=== PATIENT | male | born 2000 | race Caucasian/White ===

== ENCOUNTER 2024-10-28 14:39 | Inpatient (IN) | payer OTHER, MEDICAID ==
[~2024-10-28] VITALS: Ht 188 cm; Wt 86.2 kg
[2024-10-28] MEDS ORDERED: LORAZEPAM INJ 2 MG/ML VIAL IV ONE (15:30)
[2024-10-28] MEDS ORDERED: LORAZEPAM INJ 2 MG/ML VIAL ONE ×4 (15:36→18:00)
[2024-10-28] MEDS: LORAZEPAM INJ 2 MG/ML VIAL IM ONE (16:07)
[2024-10-28] MEDS: LORAZEPAM 4 MG/ML VIAL IM ONE (16:15)
[2024-10-28] MEDS ORDERED: diphenhydrAMINE HCL 50 MG/ML VIAL ONE (16:16)
[2024-10-28] MEDS ORDERED: HALOPERIDOL LACTATE INJ 5 MG/ML VIAL ONE (16:16)
[2024-10-28] MEDS: diphenhydrAMINE HCL 50 MG/ML VIAL IM ONE (16:20)
[2024-10-28] MEDS: HALOPERIDOL LACTATE INJ 5 MG/ML VIAL IM ONE (16:22)
[2024-10-28] MEDS: LORAZEPAM INJ 2 MG/ML VIAL IM/IV ONE (16:24)
[2024-10-28] MEDS: IV LR 1000 ML 1,000 ML BAG IV ONE ×2 (16:30→18:46)
[2024-10-28 16:39] LABS: BASOPHILS % (AUTO) 0.3 % (0.0-2.0); EOSINOPHILS % (AUTO) 0.1 % (0.0-6.0); HEMATOCRIT 45 % (39-51); HEMOGLOBIN 14.6 g/dL (13.5-17.5); LYMPHOCYTES # (AUTO) 2.5 K/uL (0.8-4.8); LYMPHOCYTES % (AUTO) 22.4 % (20.0-44.0); MEAN CORPUSCULAR HEMOGLOBIN 29 PG (26.0-33.0); MEAN CORPUSCULAR HGB CONC 32 g/dl (31.0-36.0); MEAN CORPUSCULAR VOLUME 90 fL (80-96); MONOCYTES # (AUTO) 0.8 K/uL (0.1-1.30); MONOCYTES % (AUTO) 7.4 % (2.0-12.0); NEUTROPHILS # (AUTO) 7.9 K/uL (1.8-8.9); NEUTROPHILS % (AUTO) 69.8 % (43.0-81.0); PLATELET COUNT (AUTO) 529 K/uL (150-450); RED BLOOD CELL COUNT(AUTO) 5.02 MIL/uL (4.5-6.0); RED CELL DISTRIBUTION WIDTH 14.5 % (11.5-15.0); WHITE BLOOD COUNT (AUTO) 11.3 K/uL (4.3-11.0)
[2024-10-28 17:01] LABS: CALCIUM, SERUM 10.1 mg/dL (8.5-10.1); CARBON DIOXIDE 17 mmol/L (21-32); CHLORIDE 103 mmol/L (98-107); CREATININE 1.7 mg/dL (0.6-1.3); GLUCOSE 81 mg/dL (74-106); POTASSIUM 4.5 mmol/L (3.5-5.1); SODIUM SERUM 146 mmol/L (136-145); UREA NITROGEN, BLOOD 13 mg/dL (7-18)
[2024-10-28 17:09] LABS: ALANINE AMINOTRANSFERASE 40 U/L (12-78); ALBUMIN 4.3 g/dL (3.4-5.0); ALCOHOL, BLOOD < 3 mg/dL (0-10); ALKALINE PHOSPHATASE 88 U/L (46-116); ASPARTATE AMINOTRANSFERASE 30 U/L (15-37); BILIRUBIN,DIRECT 0.2 mg/dL (0.0-0.2); BILIRUBIN,TOTAL 0.6 mg/dL (0.2-1.0); TOTAL PROTEIN, SERUM 8.4 g/dL (6.4-8.2)
[2024-10-28 17:10] LABS: ACETAMINOPHEN 0 ug/ml (10-30); SALICYLATE 1.3 mg/dL (2.8-20.0)
[2024-10-28] MEDS: LORAZEPAM INJ 2 MG/ML VIAL IV ONE (18:05)
[2024-10-28 19:03] LABS: AMPHETAMINE, URINE NEGATIVE (NEGATIVE); BARBITURATE, URINE NEGATIVE (NEGATIVE); BENZODIAZEPINE, URINE NEGATIVE (NEGATIVE); CANNABINOID, URINE NEGATIVE (NEGATIVE); COCCAINE, URINE NEGATIVE (NEGATIVE); OPIATE, URINE NEGATIVE (NEGATIVE); PHENCYCLIDINE SCREEN,URINE NEGATIVE (NEGATIVE)
[2024-10-28 19:19] LABS: APPEARANCE,URINE CLEAR (CLEAR); BILIRUBIN,URINE 1+ (NEGATIVE); BLOOD, URINE NEGATIVE Ery/uL (NEGATIVE); COLOR,URINE YELLOW (YELLOW); KETONES,URINE TRACE mg/dL (NEGATIVE); LEUKOCYTE ESTERASE ,URINE NEGATIVE (NEGATIVE); NITRITE, URINE NEGATIVE (NEGATIVE); PROTEIN,URINE 1+ mg/dl (NEGATIVE); UGLUCOSE NEGATIVE (NEGATIVE); UROBILINOGEN,URINE 0.2 EU/dL (0.2)
[2024-10-28 19:55] LABS: MUCUS,URINE Moderate /LPF (None Seen)
[2024-10-28 19:56] LABS: ADD URINE CULTURE NO; RBC,URINE 0-2 /HPF (0-2); SPERM,URINE Moderate /HPF (None Seen); SQUAMOUS EPITHELIAL CELL,UR None Seen /HPF (None Seen); WBC,URINE 0-2 /HPF (0-3)
[2024-10-28 19:57] LABS: BACTERIA,URINE Few /HPF (None Seen)
[2024-10-28 21:41] LABS: THYROID STIMULATING HORMONE 3.46 uIU/mL (0.358-3.74)
[2024-10-29] MEDS ORDERED: MAG HYDROX/AL HYDROX/SIMETH 30 ML UDC PO PRN (01:30)
[2024-10-29] MEDS ORDERED: IV NS 0.9% 1,000 ML IV PRN ×2 (01:30→12:55)
[2024-10-29] MEDS ORDERED: Z GUARD REMEDY 4 OZ OINT TP PRN (01:30)
[2024-10-29] MEDS ORDERED: MAGNESIUM HYDROXIDE 30 ML UDC PO PRN (01:30)
[2024-10-29] MEDS: PANTOPRAZOLE 40 MG TABLET.DR PO SCH (07:30)
[2024-10-29 11:03] LABS: BASOPHILS % (AUTO) 0.1 % (0.0-2.0); HEMATOCRIT 49 % (39-51); HEMOGLOBIN 17.1 g/dL (13.5-17.5); LYMPHOCYTES # (AUTO) 0.5 K/uL (0.8-4.8); LYMPHOCYTES % (AUTO) 3.8 % (20.0-44.0); MEAN CORPUSCULAR HEMOGLOBIN 30 PG (26.0-33.0); MEAN CORPUSCULAR HGB CONC 35 g/dl (31.0-36.0); MEAN CORPUSCULAR VOLUME 87 fL (80-96); MONOCYTES # (AUTO) 0.8 K/uL (0.1-1.30); MONOCYTES % (AUTO) 6.4 % (2.0-12.0); NEUTROPHILS # (AUTO) 10.9 K/uL (1.8-8.9); NEUTROPHILS % (AUTO) 89.7 % (43.0-81.0); PLATELET COUNT (AUTO) 177 K/uL (150-450); RED BLOOD CELL COUNT(AUTO) 5.63 MIL/uL (4.5-6.0); RED CELL DISTRIBUTION WIDTH 15.2 % (11.5-15.0); WHITE BLOOD COUNT (AUTO) 12.2 K/uL (4.3-11.0)
[2024-10-29 11:39] LABS: ALBUMIN 3.6 g/dL (3.4-5.0); BILIRUBIN,DIRECT 0.8 mg/dL (0.0-0.2); BILIRUBIN,TOTAL 1.4 mg/dL (0.2-1.0); CALCIUM, SERUM 8.5 mg/dL (8.5-10.1); CREATININE 2.8 mg/dL (0.6-1.3); MAGNESIUM 3.2 mg/dL (1.8-2.4); PHOSPHORUS 6.9 mg/dL (2.5-4.9); POTASSIUM 3.9 mmol/L (3.5-5.1); TOTAL PROTEIN, SERUM 7.1 g/dL (6.4-8.2)
[2024-10-29 11:42] LABS: THYROID STIMULATING HORMONE 1.22 uIU/mL (0.358-3.74)
[2024-10-29 12:00] VITALS: BP 128/93; TEMP 97.5; O2SAT 95
[2024-10-29] MEDS: IV NS 0.9% 1,000 ML IV SCH (13:50)
[2024-10-29 16:00] VITALS: BP 140/77; TEMP 98.4; O2SAT 98
[2024-10-29 18:41] LABS: CALCIUM, SERUM 7.6 mg/dL (8.5-10.1); POTASSIUM 3.9 mmol/L (3.5-5.1)
[2024-10-29 20:00] VITALS: BP 123/82; TEMP 98.6; O2SAT 97
[2024-10-30] VITALS: BP 131/85; TEMP 98.5; O2SAT 98
[2024-10-30 04:00] VITALS: BP 145/90; TEMP 98.2; TEMP 98.6; O2SAT 95
[2024-10-30 06:47] LABS: APPEARANCE,URINE TURBID (CLEAR); BILIRUBIN,URINE 2+ (NEGATIVE); BLOOD, URINE 3+ Ery/uL (NEGATIVE); COLOR,URINE BROWN (YELLOW); KETONES,URINE 1+ mg/dL (NEGATIVE); LEUKOCYTE ESTERASE ,URINE TRACE (NEGATIVE); NITRITE, URINE POSITIVE (NEGATIVE); PH,URINE 6.5 (5.0-8.0); PROTEIN,URINE 2+ mg/dl (NEGATIVE); UGLUCOSE TRACE mg/dL (NEGATIVE)
[2024-10-30 06:49] LABS: CREATININE, URINE 142.7 MG/DL (30.0-125.0); URINE TOTAL PROTEIN 222.8 mg/dL (0-11.9)
[2024-10-30 07:01] LABS: ADD URINE CULTURE YES; BACTERIA,URINE Few /HPF (None Seen); RBC,URINE 0-2 /HPF (0-2)
[2024-10-30 07:02] LABS: SQUAMOUS EPITHELIAL CELL,UR None Seen /HPF (None Seen); URINE AMORPHOUS URATE Few /HPF (None Seen)
[2024-10-30 07:25] LABS: ALBUMIN 2.9 g/dL (3.4-5.0); BILIRUBIN,TOTAL 2.7 mg/dL (0.2-1.0); CALCIUM, SERUM 7.5 mg/dL (8.5-10.1); MAGNESIUM 2.7 mg/dL (1.8-2.4); PHOSPHORUS 4.2 mg/dL (2.5-4.9); POTASSIUM 4.2 mmol/L (3.5-5.1); TOTAL PROTEIN, SERUM 5.9 g/dL (6.4-8.2)
[2024-10-30 07:26] LABS: BASOPHILS % (AUTO) 0.1 % (0.0-2.0); EOSINOPHILS % (AUTO) 0.1 % (0.0-6.0); HEMATOCRIT 42 % (39-51); HEMOGLOBIN 14.5 g/dL (13.5-17.5); LYMPHOCYTES # (AUTO) 0.4 K/uL (0.8-4.8); LYMPHOCYTES % (AUTO) 3.4 % (20.0-44.0); MEAN CORPUSCULAR HEMOGLOBIN 30 PG (26.0-33.0); MEAN CORPUSCULAR HGB CONC 35 g/dl (31.0-36.0); MEAN CORPUSCULAR VOLUME 87 fL (80-96); MONOCYTES # (AUTO) 0.4 K/uL (0.1-1.30); MONOCYTES % (AUTO) 2.9 % (2.0-12.0); NEUTROPHILS # (AUTO) 12.4 K/uL (1.8-8.9); NEUTROPHILS % (AUTO) 93.5 % (43.0-81.0); PLATELET COUNT (AUTO) 88 K/uL (150-450); RED BLOOD CELL COUNT(AUTO) 4.84 MIL/uL (4.5-6.0); RED CELL DISTRIBUTION WIDTH 14.7 % (11.5-15.0); WHITE BLOOD COUNT (AUTO) 13.3 K/uL (4.3-11.0)
[2024-10-30 07:30] VITALS: BP 153/87; TEMP 99.9; O2SAT 99
[2024-10-30 09:04] LABS: EOSINOPHIL,URINE None Seen
[2024-10-30 10:51] LABS: PLATELET ESTIMATE DECREASED
[2024-10-30 10:53] LABS: BAND % (MANUAL) 1 % (0.0-5.0); LYMPHOCYTES % (MANUAL) 3 % (16-48); MONOCYTES % (MANUAL) 1 % (0-11.0); NEUTROPHILS % (MANUAL) 95 (42-76)
[2024-10-30] MEDS: LORAZEPAM 1 MG TABLET PO PRN (12:28)
[2024-10-30] MEDS ORDERED: LORAZEPAM INJ 2 MG/ML VIAL IV PRN (12:30)
[2024-10-30 15:24] LABS: CALCIUM, SERUM 7.2 mg/dL (8.5-10.1); CREATININE 2.7 mg/dL (0.6-1.3); POTASSIUM 4.2 mmol/L (3.5-5.1)
[2024-10-30] MEDS: LORAZEPAM INJ 2 MG/ML VIAL IM PRN (15:32)
[2024-10-30 16:00] VITALS: BP 151/73; TEMP 100; O2SAT 91
[2024-10-30] MEDS: ACETAMINOPHEN 325 MG TABLET PO PRN (16:40)
[2024-10-30] MEDS ORDERED: LORAZEPAM INJ 2 MG/ML VIAL IM PRN ×2 (18:30→19:00)
[2024-10-30 20:00] VITALS: BP 131/84; TEMP 98.8
[2024-10-31 06:39] LABS: BASOPHILS % (AUTO) 0.1 % (0.0-2.0); EOSINOPHILS % (AUTO) 0.1 % (0.0-6.0); HEMATOCRIT 38 % (39-51); HEMOGLOBIN 12.8 g/dL (13.5-17.5); LYMPHOCYTES # (AUTO) 0.5 K/uL (0.8-4.8); LYMPHOCYTES % (AUTO) 3.6 % (20.0-44.0); MEAN CORPUSCULAR HEMOGLOBIN 29 PG (26.0-33.0); MEAN CORPUSCULAR HGB CONC 34 g/dl (31.0-36.0); MEAN CORPUSCULAR VOLUME 87 fL (80-96); MONOCYTES # (AUTO) 0.5 K/uL (0.1-1.30); MONOCYTES % (AUTO) 3.4 % (2.0-12.0); NEUTROPHILS # (AUTO) 13.6 K/uL (1.8-8.9); NEUTROPHILS % (AUTO) 92.8 % (43.0-81.0); PLATELET COUNT (AUTO) 73 K/uL (150-450); RED BLOOD CELL COUNT(AUTO) 4.34 MIL/uL (4.5-6.0); RED CELL DISTRIBUTION WIDTH 14.5 % (11.5-15.0); WHITE BLOOD COUNT (AUTO) 14.7 K/uL (4.3-11.0)
[2024-10-31 07:17] LABS: CALCIUM, SERUM 7.1 mg/dL (8.5-10.1); CREATININE 2.5 mg/dL (0.6-1.3); MAGNESIUM 2.2 mg/dL (1.8-2.4); PHOSPHORUS 4.1 mg/dL (2.5-4.9)
[2024-10-31 08:00] VITALS: BP 126/82; TEMP 98.2; O2SAT 97
[2024-10-31 09:55] LABS: BAND % (MANUAL) 3 % (0.0-5.0); NEUTROPHILS % (MANUAL) 90 (42-76)
[2024-10-31 09:56] LABS: ANISOCYTOSIS 1+; BASOPHILS % (MANUAL) 0 % (0.0-2.0); EOSINOPHILS % (MANUAL) 0 % (0-4); LYMPHOCYTES % (MANUAL) 5 % (16-48); MONOCYTES % (MANUAL) 2 % (0-11.0); PLATELET ESTIMATE DECREASED
[2024-10-31 12:00] VITALS: BP 136/75; TEMP 98.4; O2SAT 95
[2024-10-31 16:00] VITALS: BP 143/83; TEMP 98.8; O2SAT 98
[2024-10-31 16:35] LABS: ALANINE AMINOTRANSFERASE 2201 U/L (12-78); ALKALINE PHOSPHATASE 71 U/L (46-116); ASPARTATE AMINOTRANSFERASE > 1000 U/L (15-37); BILIRUBIN,DIRECT 2.8 mg/dL (0.0-0.2); BILIRUBIN,TOTAL 4.5 mg/dL (0.2-1.0); TOTAL PROTEIN, SERUM 4.7 g/dL (6.4-8.2)
[2024-10-31 20:00] VITALS: BP 146/91; TEMP 99.9; O2SAT 96
[2024-11-01] VITALS: BP 142/89; TEMP 100.2; O2SAT 96
[2024-11-01 04:00] VITALS: BP 151/93; TEMP 100.8; TEMP 97.9; O2SAT 94
[2024-11-01] MEDS: DILTIAZEM HCL 25 MG IV IV ONE (04:48)
[2024-11-01] MEDS: IV NS 0.9% 1,000 ML IV SCH (07:14)
[2024-11-01 08:00] VITALS: BP 144/92; TEMP 98.8; O2SAT 98
[2024-11-01 08:19] LABS: BASOPHILS % (AUTO) 0.1 % (0.0-2.0); EOSINOPHILS % (AUTO) 0.1 % (0.0-6.0); HEMATOCRIT 35 % (39-51); HEMOGLOBIN 12.1 g/dL (13.5-17.5); LYMPHOCYTES # (AUTO) 0.6 K/uL (0.8-4.8); LYMPHOCYTES % (AUTO) 4.2 % (20.0-44.0); MEAN CORPUSCULAR HEMOGLOBIN 30 PG (26.0-33.0); MEAN CORPUSCULAR HGB CONC 35 g/dl (31.0-36.0); MEAN CORPUSCULAR VOLUME 87 fL (80-96); MONOCYTES # (AUTO) 0.6 K/uL (0.1-1.30); MONOCYTES % (AUTO) 4.7 % (2.0-12.0); NEUTROPHILS # (AUTO) 12.4 K/uL (1.8-8.9); NEUTROPHILS % (AUTO) 90.9 % (43.0-81.0); PLATELET COUNT (AUTO) 78 K/uL (150-450); RED BLOOD CELL COUNT(AUTO) 4.03 MIL/uL (4.5-6.0); RED CELL DISTRIBUTION WIDTH 14.8 % (11.5-15.0); WHITE BLOOD COUNT (AUTO) 13.7 K/uL (4.3-11.0)
[2024-11-01 08:28] LABS: CALCIUM, SERUM 7.9 mg/dL (8.5-10.1); CREATININE 1.1 mg/dL (0.6-1.3); POTASSIUM 3.9 mmol/L (3.5-5.1)
[2024-11-01 11:56] LABS: BAND % (MANUAL) 2 % (0.0-5.0); BASOPHILS % (MANUAL) 0 % (0.0-2.0); EOSINOPHILS % (MANUAL) 0 % (0-4); LYMPHOCYTES % (MANUAL) 5 % (16-48); MONOCYTES % (MANUAL) 4 % (0-11.0); NEUTROPHILS % (MANUAL) 89 (42-76); PLATELET ESTIMATE DECREASED
[2024-11-01 12:00] VITALS: BP 128/92; TEMP 99.6; O2SAT 96
[2024-11-01 16:00] VITALS: BP 149/100; TEMP 101.5; O2SAT 94
[2024-11-01 20:00] VITALS: BP 142/93; TEMP 97.5; O2SAT 96
[2024-11-02] VITALS: BP 138/90; TEMP 99.9; O2SAT 96
[2024-11-02 04:00] VITALS: BP 127/91; TEMP 99.9; O2SAT 96
[2024-11-02 07:03] LABS: CALCIUM, SERUM 7.5 mg/dL (8.5-10.1); CREATININE 0.9 mg/dL (0.6-1.3); POTASSIUM 3.5 mmol/L (3.5-5.1)
[2024-11-02 20:00] VITALS: BP 139/67; TEMP 98.2; O2SAT 95
[2024-11-03] VITALS: BP 138/92; TEMP 99.1; O2SAT 93
[2024-11-03 04:00] VITALS: BP 135/83; TEMP 99.8; O2SAT 95
[2024-11-03 06:45] LABS: BASOPHILS # (AUTO) 0.1 K/uL (0.0-0.2); BASOPHILS % (AUTO) 0.4 % (0.0-2.0); EOSINOPHILS % (AUTO) 0.1 % (0.0-6.0); HEMATOCRIT 33 % (39-51); HEMOGLOBIN 11.5 g/dL (13.5-17.5); LYMPHOCYTES # (AUTO) 1.1 K/uL (0.8-4.8); LYMPHOCYTES % (AUTO) 6.7 % (20.0-44.0); MEAN CORPUSCULAR HEMOGLOBIN 30 PG (26.0-33.0); MEAN CORPUSCULAR HGB CONC 35 g/dl (31.0-36.0); MEAN CORPUSCULAR VOLUME 86 fL (80-96); MONOCYTES % (AUTO) 12.3 % (2.0-12.0); NEUTROPHILS # (AUTO) 12.9 K/uL (1.8-8.9); NEUTROPHILS % (AUTO) 80.5 % (43.0-81.0); PLATELET COUNT (AUTO) 118 K/uL (150-450); RED BLOOD CELL COUNT(AUTO) 3.85 MIL/uL (4.5-6.0); RED CELL DISTRIBUTION WIDTH 15.1 % (11.5-15.0)
[2024-11-03 07:56] LABS: ALBUMIN 1.8 g/dL (3.4-5.0); BILIRUBIN,TOTAL 4.6 mg/dL (0.2-1.0); CALCIUM, SERUM 7.5 mg/dL (8.5-10.1); CREATININE 0.9 mg/dL (0.6-1.3); MAGNESIUM 1.4 mg/dL (1.8-2.4); PHOSPHORUS 1.8 mg/dL (2.5-4.9); POTASSIUM 3.5 mmol/L (3.5-5.1); TOTAL PROTEIN, SERUM 4.9 g/dL (6.4-8.2)
[2024-11-03 08:00] VITALS: BP 148/95; TEMP 101.3; O2SAT 98
[2024-11-03] MEDS: MAGNESIUM OXIDE 400 MG TABLET PO SCH (10:18)
[2024-11-03 12:00] VITALS: BP 138/91; TEMP 98.2; O2SAT 97
[2024-11-03] MEDS: NEUTRA PHOS 1 POWD.PACKET PO ONE (12:11)
[2024-11-03 16:00] VITALS: BP 160/100; TEMP 99.5; O2SAT 98
[2024-11-03] MEDS: ENSURE ENLIVE CHOC 237 ML CAN PO SCH (17:51)
[2024-11-03 20:00] VITALS: BP 144/76; TEMP 98.6; O2SAT 94
[2024-11-03] MEDS ORDERED: CEFEPIME 1 GM in IV D5W 50 ML IV SCH (21:00)
[2024-11-03] MEDS ORDERED: AZITHROMYCIN 500 MG in IV D5W 250 ML IV SCH (21:00)
[2024-11-03] MEDS: LEVOFLOXACIN (250MG) 250 MG TABLET PO SCH (22:25)
[2024-11-03] MEDS: DOXYCYCLINE HYCLATE (100 MG) 100 MG TABLET PO SCH (22:25)
[2024-11-04] VITALS: BP 137/77; TEMP 98.9; O2SAT 95
[2024-11-04 00:41] LABS: ANISOCYTOSIS 1+; LYMPHOCYTES % (MANUAL) 9 % (16-48); MONOCYTES % (MANUAL) 13 % (0-11.0); NEUTROPHILS % (MANUAL) 78 (42-76); PLATELET ESTIMATE DECREASED
[2024-11-04 04:00] VITALS: BP_SYST 150; BP_SYST 152; BP_DIAS 80; BP_DIAS 87; TEMP 101.1; O2SAT 98
[2024-11-04 07:29] LABS: CALCIUM, SERUM 7.5 mg/dL (8.5-10.1); CREATININE 0.8 mg/dL (0.6-1.3); MAGNESIUM 1.3 mg/dL (1.8-2.4); POTASSIUM 3.2 mmol/L (3.5-5.1)
[2024-11-04 08:00] VITALS: BP 143/86; TEMP 99.4; O2SAT 98
[2024-11-04] MEDS: Magnesium 1GM/D5W 100ML PREMIX 100 ML IV SCH (10:37)
[2024-11-04] MEDS: POTASSIUM CHLORIDE 20 MEQ TAB.PRT.SR PO SCH (10:37)
[2024-11-04 12:00] VITALS: BP 141/78; TEMP 98.9; O2SAT 98
[2024-11-04 16:00] VITALS: BP 147/95; TEMP 97.6; O2SAT 98
[2024-11-04 20:00] VITALS: BP 141/87; TEMP 98.1; O2SAT 97
[2024-11-05] VITALS: BP 136/71; TEMP 98.6; O2SAT 95
[2024-11-05 04:00] VITALS: BP 134/77; TEMP 100; O2SAT 96
[2024-11-05 08:00] VITALS: BP 134/76; TEMP 97.3; O2SAT 96
[2024-11-05 08:38] LABS: ALBUMIN 1.7 g/dL (3.4-5.0); BILIRUBIN,TOTAL 2.3 mg/dL (0.2-1.0); CALCIUM, SERUM 7.5 mg/dL (8.5-10.1); CREATININE 0.6 mg/dL (0.6-1.3); MAGNESIUM 1.4 mg/dL (1.8-2.4); POTASSIUM 3.7 mmol/L (3.5-5.1); TOTAL PROTEIN, SERUM 5.2 g/dL (6.4-8.2)
[2024-11-05] MEDS: MAGNESIUM OXIDE 400 MG TABLET PO SCH (10:43)
[2024-11-05 16:00] VITALS: BP 134/76; TEMP 98.1; O2SAT 96
[2024-11-05 17:04] LABS: INR 1.38 (0.91-1.10); PARTIAL THROMBOPLASTIN TIME 30.5 SEC (24.3-34.3); PROTHROMBIN TIME 14.3 SECS (9.2-11.1)
[2024-11-05 20:00] VITALS: BP 139/85; TEMP 98.5; O2SAT 95
[2024-11-06] VITALS: BP 131/70; TEMP 98.6; O2SAT 95
[2024-11-06 07:04] LABS: ALBUMIN 1.6 g/dL (3.4-5.0); BASOPHILS % (AUTO) 0.2 % (0.0-2.0); BILIRUBIN,TOTAL 1.6 mg/dL (0.2-1.0); CALCIUM, SERUM 7.7 mg/dL (8.5-10.1); CREATININE 0.7 mg/dL (0.6-1.3); EOSINOPHILS % (AUTO) 0.2 % (0.0-6.0); HEMATOCRIT 30 % (39-51); HEMOGLOBIN 10.5 g/dL (13.5-17.5); LYMPHOCYTES # (AUTO) 1.3 K/uL (0.8-4.8); LYMPHOCYTES % (AUTO) 5.9 % (20.0-44.0); MAGNESIUM 1.3 mg/dL (1.8-2.4); MEAN CORPUSCULAR HEMOGLOBIN 30 PG (26.0-33.0); MEAN CORPUSCULAR HGB CONC 35 g/dl (31.0-36.0); MEAN CORPUSCULAR VOLUME 86 fL (80-96); MONOCYTES # (AUTO) 1.7 K/uL (0.1-1.30); MONOCYTES % (AUTO) 7.6 % (2.0-12.0); NEUTROPHILS # (AUTO) 19.3 K/uL (1.8-8.9); NEUTROPHILS % (AUTO) 86.1 % (43.0-81.0); PHOSPHORUS 3.5 mg/dL (2.5-4.9); PLATELET COUNT (AUTO) 451 K/uL (150-450); RED BLOOD CELL COUNT(AUTO) 3.53 MIL/uL (4.5-6.0); RED CELL DISTRIBUTION WIDTH 14.4 % (11.5-15.0); TOTAL PROTEIN, SERUM 5.2 g/dL (6.4-8.2); WHITE BLOOD COUNT (AUTO) 22.4 K/uL (4.3-11.0)
[2024-11-06] MEDS: MAGNESIUM OXIDE 400 MG TABLET PO ONE (10:22)
[2024-11-06] MEDS: MUPIROCIN OINT 2% 22 GM TUBE NS SCH (10:22)
[2024-11-06 17:03] LABS: PROTEIN, BODY FLUID 3.1 G/DL
[2024-11-06 21:49] LABS: APPEARANCE,SPUN,BODY FLUID CLEAR (CLEAR); MACROPHAGES, BODY FLUID 2; TOTAL VOLUME,BODY FLUID 1660 mL; WBC, BODY FLUID 3182 /cu. mm. (0-200)
[2024-11-06 21:50] LABS: MONOCYTES,BODY FLUID 3 %; POLYNUCLEAR, BODY FLUID 95 % (0-25)
[2024-11-06 22:00] VITALS: BP 133/69; TEMP 98.2; O2SAT 95
[2024-11-06] MEDS ORDERED: CEFEPIME 1 GM VIAL ONE (23:15)
[2024-11-06] MEDS ORDERED: CLINDAMYCIN 900 MG/6 ML VIAL ONE (23:15)
[2024-11-07] MEDS: CEFEPIME 1 GM in IV D5W 50 ML IV SCH ×2 (00:01→08:15)
[2024-11-07] MEDS: CLINDAMYCIN IV RTU IN D5W 900 MG/50 ML PIGGYBACK IV SCH ×2 (00:50→09:00)
[2024-11-07 06:15] VITALS: BP 126/66; TEMP 98.6; O2SAT 99
[2024-11-07 07:00] VITALS: BP 128/77; TEMP 97.3; O2SAT 98
[2024-11-07 07:07] LABS: ALBUMIN 1.7 g/dL (3.4-5.0); BILIRUBIN,TOTAL 1.3 mg/dL (0.2-1.0); CALCIUM, SERUM 7.9 mg/dL (8.5-10.1); CREATININE 0.6 mg/dL (0.6-1.3); MAGNESIUM 1.6 mg/dL (1.8-2.4); PHOSPHORUS 3.4 mg/dL (2.5-4.9); POTASSIUM 4.1 mmol/L (3.5-5.1); TOTAL PROTEIN, SERUM 5.8 g/dL (6.4-8.2)
[2024-11-07] MEDS: CLINDAMYCIN 900 MG in IV D5W 50 ML IV SCH (09:23)
[2024-11-07] MEDS: MAGNESIUM OXIDE 400 MG TABLET PO ONE (11:31)
[2024-11-07 12:36] LABS: BASOPHILS # (AUTO) 0.3 K/uL (0.0-0.2); BASOPHILS % (AUTO) 1.5 % (0.0-2.0); EOSINOPHILS % (AUTO) 0.2 % (0.0-6.0); HEMATOCRIT 33 % (39-51); HEMOGLOBIN 10.6 g/dL (13.5-17.5); LYMPHOCYTES # (AUTO) 1.8 K/uL (0.8-4.8); LYMPHOCYTES % (AUTO) 8.1 % (20.0-44.0); MEAN CORPUSCULAR HEMOGLOBIN 30 PG (26.0-33.0); MEAN CORPUSCULAR HGB CONC 33 g/dl (31.0-36.0); MEAN CORPUSCULAR VOLUME 91 fL (80-96); MONOCYTES # (AUTO) 1.8 K/uL (0.1-1.30); NEUTROPHILS # (AUTO) 18.6 K/uL (1.8-8.9); NEUTROPHILS % (AUTO) 82.2 % (43.0-81.0); PLATELET COUNT (AUTO) 658 K/uL (150-450); RED BLOOD CELL COUNT(AUTO) 3.59 MIL/uL (4.5-6.0); RED CELL DISTRIBUTION WIDTH 14.7 % (11.5-15.0); WHITE BLOOD COUNT (AUTO) 22.6 K/uL (4.3-11.0)
[2024-11-07 16:00] VITALS: BP_SYST 128; BP_SYST 139; BP_SYST 143; BP_DIAS 74; BP_DIAS 76; BP_DIAS 77; TEMP 97.3; TEMP 98.1; TEMP 98.2; O2SAT 96; O2SAT 97; O2SAT 98
[2024-11-07 20:00] VITALS: BP 111/69; TEMP 98.1; O2SAT 96
[2024-11-08 04:00] VITALS: BP 120/59; TEMP 98.2; O2SAT 96
[2024-11-08 06:06] LABS: BASOPHILS % (AUTO) 0.2 % (0.0-2.0); EOSINOPHILS % (AUTO) 0.1 % (0.0-6.0); HEMATOCRIT 32 % (39-51); HEMOGLOBIN 10.6 g/dL (13.5-17.5); LYMPHOCYTES # (AUTO) 1.3 K/uL (0.8-4.8); LYMPHOCYTES % (AUTO) 7.5 % (20.0-44.0); MEAN CORPUSCULAR HEMOGLOBIN 29 PG (26.0-33.0); MEAN CORPUSCULAR HGB CONC 34 g/dl (31.0-36.0); MEAN CORPUSCULAR VOLUME 88 fL (80-96); MONOCYTES # (AUTO) 1.1 K/uL (0.1-1.30); MONOCYTES % (AUTO) 6.4 % (2.0-12.0); NEUTROPHILS # (AUTO) 14.6 K/uL (1.8-8.9); NEUTROPHILS % (AUTO) 85.8 % (43.0-81.0); PLATELET COUNT (AUTO) 770 K/uL (150-450); RED CELL DISTRIBUTION WIDTH 14.4 % (11.5-15.0)
[2024-11-08 06:14] LABS: ALBUMIN 1.8 g/dL (3.4-5.0); BILIRUBIN,TOTAL 1.3 mg/dL (0.2-1.0); CALCIUM, SERUM 8.3 mg/dL (8.5-10.1); CREATININE 0.6 mg/dL (0.6-1.3); MAGNESIUM 1.6 mg/dL (1.8-2.4); PHOSPHORUS 3.4 mg/dL (2.5-4.9); POTASSIUM 4.4 mmol/L (3.5-5.1); TOTAL PROTEIN, SERUM 6.1 g/dL (6.4-8.2)
[2024-11-08 08:00] VITALS: BP 129/64; TEMP 97.5; O2SAT 97
[2024-11-08] MEDS: MAGNESIUM OXIDE 400 MG TABLET PO ONE (12:36)
[2024-11-08] MEDS: CEFEPIME 2 GM in IV D5W 100 ML IV SCH (15:05)
[2024-11-08 16:00] VITALS: BP 151/82; TEMP 98.1; O2SAT 96
[2024-11-08 20:00] VITALS: BP 123/76; TEMP 99.3; O2SAT 95
[2024-11-08] MEDS: IV NS 0.9% 1,000 ML IV PRN (21:50)
[2024-11-09 06:41] LABS: BASOPHILS % (AUTO) 0.3 % (0.0-2.0); HEMATOCRIT 31 % (39-51); HEMOGLOBIN 10.4 g/dL (13.5-17.5); LYMPHOCYTES # (AUTO) 1.2 K/uL (0.8-4.8); LYMPHOCYTES % (AUTO) 8.7 % (20.0-44.0); MEAN CORPUSCULAR HEMOGLOBIN 30 PG (26.0-33.0); MEAN CORPUSCULAR HGB CONC 34 g/dl (31.0-36.0); MEAN CORPUSCULAR VOLUME 88 fL (80-96); MONOCYTES % (AUTO) 7.3 % (2.0-12.0); NEUTROPHILS % (AUTO) 83.7 % (43.0-81.0); PLATELET COUNT (AUTO) 810 K/uL (150-450); RED CELL DISTRIBUTION WIDTH 14.4 % (11.5-15.0); WHITE BLOOD COUNT (AUTO) 14.3 K/uL (4.3-11.0)
[2024-11-09 06:56] LABS: ALBUMIN 1.9 g/dL (3.4-5.0); CALCIUM, SERUM 8.4 mg/dL (8.5-10.1); CREATININE 0.7 mg/dL (0.6-1.3); MAGNESIUM 1.7 mg/dL (1.8-2.4); PHOSPHORUS 3.5 mg/dL (2.5-4.9); POTASSIUM 4.2 mmol/L (3.5-5.1); TOTAL PROTEIN, SERUM 6.5 g/dL (6.4-8.2)
[2024-11-09 07:30] VITALS: BP 125/73; TEMP 98.2; O2SAT 96
[2024-11-09] MEDS: Magnesium 1GM/D5W 100ML PREMIX 100 ML IV SCH (11:34)
[2024-11-09 12:48] LABS: CALCIUM, SERUM 8.1 mg/dL (8.5-10.1); CREATININE 0.8 mg/dL (0.6-1.3); MAGNESIUM 1.9 mg/dL (1.8-2.4); PHOSPHORUS 3.2 mg/dL (2.5-4.9); POTASSIUM 4.1 mmol/L (3.5-5.1)
[2024-11-09 12:59] LABS: THYROID STIMULATING HORMONE 1.05 uIU/mL (0.358-3.74); URIC ACID 2.4 mg/dL (2.6-7.2)
[2024-11-09] MEDS ORDERED: BISACODYL SUPP (10 MG) 10 MG/SUPP.RECT SUPP.RECT RC PRN (15:30)
[2024-11-09 16:00] VITALS: BP 120/65; TEMP 99.5; O2SAT 93
[2024-11-09] MEDS: DOCUSATE SODIUM 100 MG CAPSULE PO SCH (16:02)
[2024-11-09 20:00] VITALS: BP 117/69; TEMP 98.6; O2SAT 94
[2024-11-10 04:00] VITALS: BP 130/70; TEMP 99.8; O2SAT 95
[2024-11-10 07:30] LABS: CALCIUM, SERUM 8.2 mg/dL (8.5-10.1); CREATININE 0.7 mg/dL (0.6-1.3); MAGNESIUM 1.8 mg/dL (1.8-2.4); POTASSIUM 4.2 mmol/L (3.5-5.1)
[2024-11-10 07:32] LABS: BASOPHILS % (AUTO) 0.2 % (0.0-2.0); HEMATOCRIT 31 % (39-51); HEMOGLOBIN 10.5 g/dL (13.5-17.5); LYMPHOCYTES # (AUTO) 1.1 K/uL (0.8-4.8); LYMPHOCYTES % (AUTO) 7.9 % (20.0-44.0); MEAN CORPUSCULAR HEMOGLOBIN 30 PG (26.0-33.0); MEAN CORPUSCULAR HGB CONC 34 g/dl (31.0-36.0); MEAN CORPUSCULAR VOLUME 87 fL (80-96); MONOCYTES # (AUTO) 1.5 K/uL (0.1-1.30); MONOCYTES % (AUTO) 10.6 % (2.0-12.0); NEUTROPHILS # (AUTO) 11.3 K/uL (1.8-8.9); NEUTROPHILS % (AUTO) 81.3 % (43.0-81.0); PLATELET COUNT (AUTO) 852 K/uL (150-450); RED BLOOD CELL COUNT(AUTO) 3.52 MIL/uL (4.5-6.0); RED CELL DISTRIBUTION WIDTH 14.3 % (11.5-15.0); WHITE BLOOD COUNT (AUTO) 13.9 K/uL (4.3-11.0)
[2024-11-10 08:00] VITALS: BP 124/62; TEMP 97.9; O2SAT 95
[2024-11-10 15:25] LABS: URINE SODIUM, RANDOM 36 mmol/l (40-220)
[2024-11-10 16:00] VITALS: BP 129/63; TEMP 99.7; O2SAT 95
[2024-11-10 20:00] VITALS: BP 110/55; TEMP 99; O2SAT 96
[2024-11-11 06:51] LABS: BASOPHILS % (AUTO) 0.3 % (0.0-2.0); EOSINOPHILS % (AUTO) 0.1 % (0.0-6.0); HEMATOCRIT 30 % (39-51); HEMOGLOBIN 10.3 g/dL (13.5-17.5); LYMPHOCYTES # (AUTO) 1.1 K/uL (0.8-4.8); MEAN CORPUSCULAR HEMOGLOBIN 30 PG (26.0-33.0); MEAN CORPUSCULAR HGB CONC 34 g/dl (31.0-36.0); MEAN CORPUSCULAR VOLUME 89 fL (80-96); MONOCYTES # (AUTO) 1.4 K/uL (0.1-1.30); MONOCYTES % (AUTO) 12.3 % (2.0-12.0); NEUTROPHILS # (AUTO) 8.7 K/uL (1.8-8.9); NEUTROPHILS % (AUTO) 77.3 % (43.0-81.0); PLATELET COUNT (AUTO) 797 K/uL (150-450); RED BLOOD CELL COUNT(AUTO) 3.41 MIL/uL (4.5-6.0); RED CELL DISTRIBUTION WIDTH 14.3 % (11.5-15.0); WHITE BLOOD COUNT (AUTO) 11.2 K/uL (4.3-11.0)
[2024-11-11 07:42] LABS: ALBUMIN 1.6 g/dL (3.4-5.0); BILIRUBIN,TOTAL 0.7 mg/dL (0.2-1.0); CALCIUM, SERUM 8.3 mg/dL (8.5-10.1); CREATININE 0.5 mg/dL (0.6-1.3); MAGNESIUM 1.7 mg/dL (1.8-2.4); PHOSPHORUS 3.3 mg/dL (2.5-4.9); POTASSIUM 4.1 mmol/L (3.5-5.1); TOTAL PROTEIN, SERUM 6.4 g/dL (6.4-8.2)
[2024-11-11 08:00] VITALS: BP 112/70; TEMP 99.1; O2SAT 96
[2024-11-11] MEDS: MAGNESIUM OXIDE 400 MG TABLET PO ONE (10:03)
[2024-11-11 16:00] VITALS: BP 101/73; TEMP 98.1; O2SAT 95
[2024-11-11] MEDS: SODIUM CHLORIDE 1000 MG TABLET PO SCH (17:21)
[2024-11-11 20:00] VITALS: BP 113/58; TEMP 98.9; O2SAT 95
[2024-11-12 06:45] LABS: BASOPHILS % (AUTO) 0.4 % (0.0-2.0); EOSINOPHILS % (AUTO) 0.2 % (0.0-6.0); HEMATOCRIT 30 % (39-51); HEMOGLOBIN 10.1 g/dL (13.5-17.5); LYMPHOCYTES # (AUTO) 1.3 K/uL (0.8-4.8); LYMPHOCYTES % (AUTO) 15.5 % (20.0-44.0); MEAN CORPUSCULAR HEMOGLOBIN 30 PG (26.0-33.0); MEAN CORPUSCULAR HGB CONC 34 g/dl (31.0-36.0); MEAN CORPUSCULAR VOLUME 86 fL (80-96); MONOCYTES # (AUTO) 1.2 K/uL (0.1-1.30); MONOCYTES % (AUTO) 14.1 % (2.0-12.0); NEUTROPHILS # (AUTO) 5.7 K/uL (1.8-8.9); NEUTROPHILS % (AUTO) 69.8 % (43.0-81.0); PLATELET COUNT (AUTO) 815 K/uL (150-450); RED BLOOD CELL COUNT(AUTO) 3.42 MIL/uL (4.5-6.0); WHITE BLOOD COUNT (AUTO) 8.2 K/uL (4.3-11.0)
[2024-11-12 07:21] LABS: CALCIUM, SERUM 8.2 mg/dL (8.5-10.1); CREATININE 0.6 mg/dL (0.6-1.3)
[2024-11-12 08:00] VITALS: BP 112/60; TEMP 98.8; O2SAT 96
[2024-11-12 16:00] VITALS: BP 126/72; TEMP 97.9; O2SAT 96
[2024-11-12 20:00] VITALS: BP 125/74; TEMP 97.5; O2SAT 96
[2024-11-13 07:28] LABS: CALCIUM, SERUM 8.3 mg/dL (8.5-10.1); CREATININE 0.6 mg/dL (0.6-1.3); POTASSIUM 4.1 mmol/L (3.5-5.1)
[2024-11-13 07:34] LABS: BASOPHILS % (AUTO) 0.4 % (0.0-2.0); EOSINOPHILS % (AUTO) 0.2 % (0.0-6.0); HEMATOCRIT 29 % (39-51); HEMOGLOBIN 9.8 g/dL (13.5-17.5); LYMPHOCYTES # (AUTO) 1.3 K/uL (0.8-4.8); LYMPHOCYTES % (AUTO) 11.1 % (20.0-44.0); MEAN CORPUSCULAR HEMOGLOBIN 30 PG (26.0-33.0); MEAN CORPUSCULAR HGB CONC 34 g/dl (31.0-36.0); MEAN CORPUSCULAR VOLUME 87 fL (80-96); MONOCYTES # (AUTO) 1.1 K/uL (0.1-1.30); MONOCYTES % (AUTO) 9.6 % (2.0-12.0); NEUTROPHILS # (AUTO) 9.1 K/uL (1.8-8.9); NEUTROPHILS % (AUTO) 78.7 % (43.0-81.0); PLATELET COUNT (AUTO) 812 K/uL (150-450); RED BLOOD CELL COUNT(AUTO) 3.29 MIL/uL (4.5-6.0); RED CELL DISTRIBUTION WIDTH 13.9 % (11.5-15.0); WHITE BLOOD COUNT (AUTO) 11.5 K/uL (4.3-11.0)
[2024-11-13 08:00] VITALS: BP 111/66; TEMP 97.5; O2SAT 97
[2024-11-13 16:00] VITALS: BP 120/77; TEMP 98.1; O2SAT 95
[2024-11-13] MEDS: DOXYCYCLINE HYCLATE (100 MG) 100 MG TABLET PO SCH (21:38)
[2024-11-13] MEDS: METRONIDAZOLE 500 MG TABLET PO SCH (21:38)
[2024-11-14 02:51] VITALS: BP 114/82; TEMP 97.7; O2SAT 97
[2024-11-14 06:49] LABS: BASOPHILS # (AUTO) 0.1 K/uL (0.0-0.2); BASOPHILS % (AUTO) 0.6 % (0.0-2.0); EOSINOPHILS % (AUTO) 0.3 % (0.0-6.0); HEMATOCRIT 31 % (39-51); HEMOGLOBIN 10.2 g/dL (13.5-17.5); LYMPHOCYTES # (AUTO) 1.6 K/uL (0.8-4.8); LYMPHOCYTES % (AUTO) 13.8 % (20.0-44.0); MEAN CORPUSCULAR HEMOGLOBIN 29 PG (26.0-33.0); MEAN CORPUSCULAR HGB CONC 33 g/dl (31.0-36.0); MEAN CORPUSCULAR VOLUME 88 fL (80-96); MONOCYTES # (AUTO) 1.4 K/uL (0.1-1.30); MONOCYTES % (AUTO) 12.2 % (2.0-12.0); NEUTROPHILS # (AUTO) 8.4 K/uL (1.8-8.9); NEUTROPHILS % (AUTO) 73.1 % (43.0-81.0); PLATELET COUNT (AUTO) 812 K/uL (150-450); RED BLOOD CELL COUNT(AUTO) 3.52 MIL/uL (4.5-6.0); RED CELL DISTRIBUTION WIDTH 13.9 % (11.5-15.0); WHITE BLOOD COUNT (AUTO) 11.4 K/uL (4.3-11.0)
[2024-11-14 07:04] LABS: CREATININE 0.5 mg/dL (0.6-1.3); POTASSIUM 4.3 mmol/L (3.5-5.1)
[2024-11-14 08:00] VITALS: BP 127/77; TEMP 97.5; O2SAT 96
[2024-11-14 16:00] VITALS: BP 118/76; TEMP 98.1; O2SAT 97
[2024-11-14 20:00] VITALS: BP 133/75; TEMP 98.1; O2SAT 98
[2024-11-15 07:54] LABS: CALCIUM, SERUM 9.2 mg/dL (8.5-10.1); CREATININE 0.4 mg/dL (0.6-1.3); POTASSIUM 4.1 mmol/L (3.5-5.1)
[2024-11-15 08:00] VITALS: BP 144/82; TEMP 97.6; O2SAT 97
[2024-11-15 16:00] VITALS: BP 142/82; TEMP 97.9; O2SAT 98
[2024-11-15 20:00] VITALS: BP 125/75; TEMP 97.5; O2SAT 99
[2024-11-16 07:56] LABS: CALCIUM, SERUM 9.2 mg/dL (8.5-10.1); CREATININE 0.6 mg/dL (0.6-1.3)
[2024-11-16 08:00] VITALS: BP 128/76; TEMP 97.3; O2SAT 97
[2024-11-16 16:00] VITALS: BP 120/79; TEMP 98.1; O2SAT 97
[2024-11-16 20:20] VITALS: BP 129/84; TEMP 98.1; O2SAT 97
[2024-11-17 07:00] VITALS: BP 133/86; TEMP 97.5; O2SAT 98
[2024-11-17] MEDS ORDERED: PANT40TA49 PO (07:04)
[2024-11-17] MEDS ORDERED: Z Guard Remedy TP (07:04)
[2024-11-17] MEDS ORDERED: DOXY100T2 PO (07:04)
[2024-11-17] MEDS ORDERED: DOCU100C36 PO (07:04)
[2024-11-17] MEDS ORDERED: LACT-54 PO (07:04)
[2024-11-17] MEDS ORDERED: LORA-259 PO (07:04)
[2024-11-17] MEDS ORDERED: ACET325T53 PO (07:04)
[2024-11-17] MEDS ORDERED: METR500T PO (07:04)
[2024-11-17] MEDS ORDERED: CEFE2PIG2 IV (07:04)
[2024-11-17 07:50] LABS: CALCIUM, SERUM 9.2 mg/dL (8.5-10.1); CREATININE 0.6 mg/dL (0.6-1.3); POTASSIUM 4.4 mmol/L (3.5-5.1)
[2024-11-17 11:30] VITALS: BP 130/89; TEMP 97.5; O2SAT 98
[2024-11-17 16:00] VITALS: BP 132/90; TEMP 97.3; O2SAT 98
== END 2024-11-17 19:59 | disposition short-term general hospital (02) | DRG 871 ==
LOC: ER 14:44 → TELE 10-29 06:36 → MED 11-06 10:14
PROVIDERS: ADMIT Internal Medicine; ATTEND Nurse Practitioner Acute Care
PROC: 0W9B3ZX Drainage of Left Pleural Cavity, Percutaneous Approach, Diagnostic (ICD-10-PCS; 2024-11-06)
PROC: 0W9B30Z Drainage of Left Pleural Cavity with Drainage Device, Percutaneous Approach (ICD-10-PCS; principal; 2024-11-07)
DX: A41.9 Sepsis, unspecified organism (principal); E43 Unspecified severe protein-calorie malnutrition; N17.0 Acute kidney failure with tubular necrosis; G92.9 Unspecified toxic encephalopathy; J69.0 Pneumonitis due to inhalation of food and vomit; J86.9 Pyothorax without fistula; M62.82 Rhabdomyolysis; N39.0 Urinary tract infection, site not specified; E87.1 Hypo-osmolality and hyponatremia; F19.139 Other psychoactive substance abuse with withdrawal, unspecified; J94.8 Other specified pleural conditions; R00.0 Tachycardia, unspecified; F12.10 Cannabis abuse, uncomplicated; B96.20 Unspecified Escherichia coli [E. coli] as the cause of diseases classified elsewhere; D64.9 Anemia, unspecified; M89.8X9 Other specified disorders of bone, unspecified site; E88.09 Other disorders of plasma-protein metabolism, not elsewhere classified; Z20.822 Contact with and (suspected) exposure to COVID-19; Z78.1 Physical restraint status
CPT/HCPCS: 36415; 70450-TC; 71045-TC; 71250-TC; 73090-TC; 74018; 75989; 76770-TC; 80048-TC; 80053-TC; 80076-TC; 81001; 82533; 82550-TC; 82553; 82570-TC; 82962-TC; 83735-TC; 83935-TC; 83970; 84100-TC; 84300-TC; 84443-TC; 84484-TC; 84550-TC; 85025-TC; 85730-TC; 87040-TC; 87081-TC; 87086-TC; 87102-TC; 88108-TC; 88305-TC; 88312-TC; 89051-TC; 97110-TC; 97116-TC; 97530-TC; A4223; G0378; G0480; J0692; J1200; J1630; J2060; J3475; J3490; J7030; J7050; J7060; J7120

== ENCOUNTER 2024-11-19 22:45 | Inpatient (IN) | payer OTHER ==
[~2024-11-19] VITALS: Ht 188 cm; Wt 86.2 kg
[~2024-11-19 22:45] MED LIST: ACET325T53 PO; CEFE2PIG2 IV; DOCU100C36 PO; DOXY100T2 PO; LACT-54 PO; LORA-259 PO; METR500T PO; PANT40TA49 PO; Z Guard Remedy TP
[2024-11-19 23:00] VITALS: BP 130/78; TEMP 97.5; O2SAT 95
[2024-11-20] VITALS (9 sets, daily range): BP systolic 124–134; BP diastolic 69–93; TEMP 97.5–99; O2SAT 95–98
[2024-11-20] MEDS ORDERED: MAG HYDROX/AL HYDROX/SIMETH 30 ML UDC PO PRN
[2024-11-20] MEDS ORDERED: ONDANSETRON HCL/PF 4 MG/2 ML VIAL IVP PRN
[2024-11-20] MEDS ORDERED: MAGNESIUM HYDROXIDE 30 ML UDC PO PRN
[2024-11-20 06:48] LABS: BASOPHILS % (AUTO) 0.5 % (0.0-2.0); EOSINOPHILS # (AUTO) 0.1 K/uL (0.0-0.7); EOSINOPHILS % (AUTO) 1.1 % (0.0-6.0); HEMATOCRIT 31 % (39-51); HEMOGLOBIN 10.4 g/dL (13.5-17.5); LYMPHOCYTES # (AUTO) 1.9 K/uL (0.8-4.8); MEAN CORPUSCULAR HEMOGLOBIN 30 PG (26.0-33.0); MEAN CORPUSCULAR HGB CONC 34 g/dl (31.0-36.0); MEAN CORPUSCULAR VOLUME 88 fL (80-96); MONOCYTES # (AUTO) 1.1 K/uL (0.1-1.30); MONOCYTES % (AUTO) 13.1 % (2.0-12.0); NEUTROPHILS # (AUTO) 4.9 K/uL (1.8-8.9); NEUTROPHILS % (AUTO) 61.3 % (43.0-81.0); PLATELET COUNT (AUTO) 611 K/uL (150-450); RED BLOOD CELL COUNT(AUTO) 3.55 MIL/uL (4.5-6.0); RED CELL DISTRIBUTION WIDTH 14.6 % (11.5-15.0); WHITE BLOOD COUNT (AUTO) 8.1 K/uL (4.3-11.0)
[2024-11-20 07:25] LABS: ALBUMIN 2.1 g/dL (3.4-5.0); BILIRUBIN,TOTAL 0.5 mg/dL (0.2-1.0); CALCIUM, SERUM 8.8 mg/dL (8.5-10.1); CREATININE 0.5 mg/dL (0.6-1.3); MAGNESIUM 1.6 mg/dL (1.8-2.4); PHOSPHORUS 4.1 mg/dL (2.5-4.9); POTASSIUM 3.9 mmol/L (3.5-5.1); TOTAL PROTEIN, SERUM 6.5 g/dL (6.4-8.2)
[2024-11-20] MEDS: CEFEPIME 2 GM in IV D5W 100 ML IV SCH (13:00)
[2024-11-20] MEDS: METRONIDAZOLE 500 MG TABLET PO SCH (13:10)
[2024-11-20] MEDS: MAGNESIUM OXIDE 400 MG TABLET PO ONE (13:10)
[2024-11-20] MEDS: DOXYCYCLINE HYCLATE (100 MG) 100 MG TABLET PO SCH (13:13)
[2024-11-20] MEDS: KETOROLAC TROMETHAMINE 15 MG/ML VIAL IV PRN (15:09)
[2024-11-20] MEDS: THERAHONEY GEL 1.5 OZ TUBE TP SCH (15:56)
[2024-11-21] VITALS: BP 132/93; TEMP 99; O2SAT 97
[2024-11-21 03:52] VITALS: BP 129/89; TEMP 98.2; O2SAT 96
[2024-11-21 04:00] VITALS: BP 129/89; TEMP 98.2; O2SAT 96
[2024-11-21 07:16] LABS: BASOPHILS # (AUTO) 0.1 K/uL (0.0-0.2); BASOPHILS % (AUTO) 0.6 % (0.0-2.0); EOSINOPHILS # (AUTO) 0.2 K/uL (0.0-0.7); EOSINOPHILS % (AUTO) 2.6 % (0.0-6.0); HEMATOCRIT 33 % (39-51); HEMOGLOBIN 10.8 g/dL (13.5-17.5); LYMPHOCYTES # (AUTO) 1.3 K/uL (0.8-4.8); LYMPHOCYTES % (AUTO) 15.8 % (20.0-44.0); MEAN CORPUSCULAR HEMOGLOBIN 29 PG (26.0-33.0); MEAN CORPUSCULAR HGB CONC 33 g/dl (31.0-36.0); MEAN CORPUSCULAR VOLUME 88 fL (80-96); MONOCYTES # (AUTO) 0.9 K/uL (0.1-1.30); MONOCYTES % (AUTO) 11.2 % (2.0-12.0); NEUTROPHILS # (AUTO) 5.9 K/uL (1.8-8.9); NEUTROPHILS % (AUTO) 69.8 % (43.0-81.0); PLATELET COUNT (AUTO) 603 K/uL (150-450); RED BLOOD CELL COUNT(AUTO) 3.75 MIL/uL (4.5-6.0); RED CELL DISTRIBUTION WIDTH 14.6 % (11.5-15.0); WHITE BLOOD COUNT (AUTO) 8.4 K/uL (4.3-11.0)
[2024-11-21 07:30] VITALS: BP 125/86; TEMP 98.1; O2SAT 98
[2024-11-21 07:53] LABS: CREATININE 0.6 mg/dL (0.6-1.3); MAGNESIUM 1.7 mg/dL (1.8-2.4); PHOSPHORUS 4.3 mg/dL (2.5-4.9); POTASSIUM 4.1 mmol/L (3.5-5.1)
[2024-11-21] MEDS: MAGNESIUM OXIDE 400 MG TABLET PO ONE (11:03)
[2024-11-21 16:00] VITALS: BP 118/94; TEMP 98.1; O2SAT 98
[2024-11-21 20:00] VITALS: BP 124/82; TEMP 98.2; O2SAT 95
[2024-11-22 07:00] VITALS: BP 137/86; TEMP 98.1; O2SAT 98
[2024-11-22 16:00] VITALS: BP 130/91; TEMP 97.9; O2SAT 99
[2024-11-22] MEDS: ACETAMINOPHEN 325 MG TABLET PO PRN (16:15)
[2024-11-22 20:00] VITALS: BP 123/92; TEMP 98.2; O2SAT 97
[2024-11-23 08:00] VITALS: BP 118/90; TEMP 97.7; O2SAT 98
[2024-11-23] MEDS ORDERED: KETO10TA2 PO (13:04)
[2024-11-23] MEDS ORDERED: METR500T PO (13:04)
[2024-11-23] MEDS ORDERED: LEVO750T46 PO (13:04)
[2024-11-23 16:00] VITALS: BP 126/82; TEMP 98.6; O2SAT 96
[2024-11-23 20:00] VITALS: BP 126/78; TEMP 97.7; O2SAT 96
[2024-11-24 08:02] VITALS: BP 120/84; TEMP 97.7; O2SAT 98
[2024-11-24 09:32] LABS: CALCIUM, SERUM 8.9 mg/dL (8.5-10.1); CREATININE 0.6 mg/dL (0.6-1.3); POTASSIUM 4.7 mmol/L (3.5-5.1)
== END 2024-11-24 14:10 | DRG 177 ==
LOC: MED 22:45 → TELE 11-20 05:06 → MED 11-22 03:43
PROVIDERS: ADMIT Nurse Practitioner Acute Care; ATTEND Nurse Practitioner Acute Care
DX: J69.0 Pneumonitis due to inhalation of food and vomit (principal); J86.9 Pyothorax without fistula; L89.153 Pressure ulcer of sacral region, stage 3; J98.11 Atelectasis; J94.8 Other specified pleural conditions; J91.8 Pleural effusion in other conditions classified elsewhere; I10 Essential (primary) hypertension; F32.9 Major depressive disorder, single episode, unspecified; F19.10 Other psychoactive substance abuse, uncomplicated; R20.0 Anesthesia of skin; R20.2 Paresthesia of skin; Z22.322 Carrier or suspected carrier of Methicillin resistant Staphylococcus aureus; Z88.0 Allergy status to penicillin; Z91.51 Personal history of suicidal behavior; Z87.898 Personal history of other specified conditions; Z86.59 Personal history of other mental and behavioral disorders; M54.10 Radiculopathy, site unspecified
CPT/HCPCS: 36415; 71045-TC; 80048-TC; 80053-TC; 83735-TC; 83880; 84100-TC; 85025-TC; 93930-TC; 93971-TC; 97110-TC; 97112-TC; 97116-TC; 97530-TC; A4223; A6403; G0378; J0692; J1885; J7050; J7060